=== PATIENT | male | born 1990 | race Caucasian/White ===

== ENCOUNTER 2020-07-14 12:34 | Emergency (ER) | payer BC ==
[2020-07-14 12:45] VITALS: O2SAT 97
[2020-07-14] MEDS ORDERED: Sodium Chloride 0.9% 1000 ML 1,000 ML IV STA (12:52)
[2020-07-14] MEDS ORDERED: BENADRYL 50 MG/ML IV ONE (12:52)
[2020-07-14] MEDS ORDERED: Pepcid 20 MG VIAL IV ONE ×2 (12:52→13:06)
[2020-07-14] MEDS ORDERED: BENADRYL 50 MG/ML ONE (13:06)
[2020-07-14] MEDS ORDERED: Sodium Chloride 0.9% 1000 ML 1,000 ML ONE (13:06)
--- NOTE | 2020-07-14 13:14 | ERPHSYRPT ---
- History of Present Illness Time Seen by Provider: 07/14/20 12:55 Historian: patient Exam Limitations: no limitations Patient Subjective Stated Complaint: Pt states "I have been vomiting since saturday morning, I have not pooped for a week. I cannot keep anything down." Triage Nursing Assessment: Pt presented alert and oriented X 3, skin pwd Pt a mbulates with an upright shuffling gait, pt in no apparent respiratory distress. pt has generalized malaise. Physician History: Patient has had 3 days of nausea and vomiting with upper abdominal discomfort where he is not able to eat and drink over the last 3 days and feels fatigue. Due to his symptoms, he called EMS to bring him into the emergency department to be further evaluated and treated. EMS gave him 4 mg of Zofran IV and he feels he can take oral intake at this time. Patient has not been evaluated or treated prior to coming into the emergency department. Timing/Duration: day(s) (three) Activities at Onset: none Quality: aching Abdominal Pain Onset Location: RUQ Pain Radiation: no radiation Severity of Pain-Max: moderate Severity of Pain-Current: moderate Modifying Factors: Worsens With: eating Associated Symptoms: fever/chills, fatigue, headache, nausea, vomiting, weakness (Generalized), No back, No chest pain, No diaphoresis, No diarrhea, No heartburn, No loss of appetite, No neck pain, No rash, No shortness of breath, No syncope, No testicular pain Previous symptoms: no prior history, no recent treatment Allergies/Adverse Reactions: No Known Drug Allergies Allergy (Verified 07/14/20 12:46) Home Medications: Quetiapine Fumarate [Seroquel] 200 mg PO HS 05/20/15 [History] Methadone HCl [Dolophine HCl] 5 mg PO 07/14/20 [History] Testosterone Cypionate 100 mg IM WEEKLY 07/14/20 [History] Hx Tetanus, Diphtheria Vaccination/Date Given: Yes Hx Influenza Vaccination/Date Given: No Hx Pneumococcal Vaccination/Date Given: No Immunizations Up to Date: Yes Travel Risk - International Travel Have you traveled outside of the country in past 3 weeks: No - Coronavirus Screening Are you exhibiting any of the following symptoms?: Yes Symptoms: Fever, Vomiting/Diarrhea Close contact with a COVID-19 positive Pt in past 14-21 Days: No - Review of Systems Constitutional: Fever, Chills, Fatigue, Malaise, Weakness Eyes: No Discharge, No Eye Pain, No Eye Redness Ears, Nose, & Throat: No Nose Congestion, No Sinus Drainage, No Throat Pain, No Painful Swallowing Respiratory: No Cough, No Dyspnea Cardiac: No Chest Pain, No Edema, No Syncope Abdominal/Gastrointestinal: Abdominal Pain, Nausea, Vomiting, No Diarrhea, No Hematemesis, No Hematochezia, No Melena Genitourinary Symptoms: No Dysuria, No Hematuria, No Flank Pain Musculoskeletal: No Back Pain, No Neck Pain Skin: No Pruritis, No Rash Neurological: Headache, No Dizziness, No Focal Weakness, No Parasthesia, No Sensory Changes Psychological: No Symptoms, No Alcohol Abuse, No Drug Abuse Endocrine: Polyuria Hematologic/Lymphatic: No Easy Bleeding, No Easy Bruising All Other Systems: Reviewed and Negative - Past Medical History Pertinent Past Medical History: Yes Other Medical History: methadone. seroquel - Past Surgical History Past Surgical History: No - Social History Smoking Status: Current every day smoker How long have you smoked: years Exposure to second hand smoke: Yes Drug Use: marijuana Patient Lives Alone: No - Nursing Vital Signs Nursing Vital Signs: Initial Vital Signs Temperature 98.7 F 07/14/20 12:36 Pulse Rate 76 07/14/20 12:36 Respiratory Rate 20 07/14/20 12:36 Blood Pressure 162/99 07/14/20 12:36 O2 Sat by Pulse Oximetry 97 07/14/20 12:36 Pain Scale Pain Intensity 4 - Physical Exam General Appearance: no apparent distress, alert Eye Exam: PERRL/EOMI, eyes nml inspection, No scleral icterus, No pale conjunctivae Ears, Nose, Throat Exam: normal ENT inspection, TMs normal, pharynx normal, moist mucous membranes Neck Exam: normal inspection, non-tender, supple, full range of motion, No meningismus, No Brudzinski, No JVD, No limited range of motion Respiratory Exam: normal breath sounds, lungs clear, airway intact, No respiratory distress, No diminished breath sounds, No accessory muscle use, No crackles/rales, No rhonchi, No wheezing, No stridor Cardiovascular Exam: regular rate/rhythm, normal heart sounds, normal peripheral pulses Gastrointestinal/Abdomen Exam: soft, normal bowel sounds, No tenderness, No distention, No mass, No guarding, No rebound Back Exam: normal inspection, normal range of motion, No CVA tenderness, No vertebral tenderness Extremity Exam: normal inspection, normal range of motion, pelvis stable Neurologic Exam: alert, oriented x 3, cooperative, 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, normal mood/affect, sensation nml, No motor deficits Skin Exam: normal color, warm, dry, No rash, No petechiae, No jaundice SpO2 Interpretation: normal SpO2: 97 O2 Delivery: Room Air - Course Nursing assessment & vital signs reviewed: Yes EKG Interpreted by Me: RATE, Sinus Rhythm, NORMAL AXIS, NORMAL INTERVALS, NORMAL QRS, NORMAL ST-T, Other (Normal sinus rhythm at 61 bpm with normal axis, with normal [place] and QTC intervals, and no acute ST or T wave changes; no appreciable change in comparison EKG from 05/20/2015) - Radiology Exams Chest X-ray Interpretation: Interpreted by me, Reviewed by me, No Fracture, No Pneumonia, No Pneumothorax, No Infiltrates, Nml Mediastinum, Other (Per radiologist interpretation, portable chest demonstrates normal heart, lungs and bony thorax) - Radiology Ultrasound Exam Gallbladder Ultrasound: negative, Other (Per radiologist interpretation, negative gallbladder ultrasound) Ordered Tests: Active Orders 24 hr Category Date Time Status EKG-ER Only STAT Care 07/14/20 12:52 Active NPO (ED) STAT Care 07/14/20 12:52 Active CHEST 1 VIEW (PORTABLE) Stat Exams 07/14/20 12:52 Completed GALLBLADDER [US] Stat Exams 07/14/20 12:53 Completed AMYLASE Stat Lab 07/14/20 13:20 Completed CBC W DIFF Stat Lab 07/14/20 13:20 Completed CMP Stat Lab 07/14/20 13:20 Completed LIPASE Stat Lab 07/14/20 13:20 Completed Lactic Acid Stat Lab 07/14/20 13:24 Completed MAGNESIUM Stat Lab 07/14/20 13:20 Completed PROTIME WITH INR Stat Lab 07/14/20 13:20 Completed TROPONIN Q3H Lab 07/14/20 13:20 Completed TROPONIN Q3H Lab 07/14/20 16:00 Ordered TROPONIN Q3H Lab 07/14/20 19:00 Ordered TROPONIN Q3H Lab 07/14/20 22:00 Ordered TROPONIN Q3H Lab 07/15/20 01:00 Ordered UA W/RFX UR CULTURE Stat Lab 07/14/20 14:22 Completed Medication Summary Discontinued Medications Generic Name Dose Route Start Last Admin Trade Name Yann PRN Reason Stop Dose Admin Diphenhydramine HCl 25 mg 07/14/20 12:52 07/14/20 13:08 Benadryl 50 Mg/Ml IV 07/14/20 12:53 25 mg STAT ONE Administration Diphenhydramine HCl Confirm 07/14/20 13:06 Benadryl 50 Mg/Ml Administered 07/14/20 13:07 Dose 50 mg .ROUTE .STK-MED ONE Famotidine 20 mg 07/14/20 12:52 07/14/20 13:07 Pepcid 20 Mg Vial IV 07/14/20 12:53 20 mg STAT ONE Administration Famotidine Confirm 07/14/20 13:06 Pepcid 20 Mg Vial Administered 07/14/20 13:07 Dose 20 mg IV .STK-MED ONE Sodium Chloride 1,000 mls @ 999 mls/hr 07/14/20 12:52 07/14/20 14:35 Sodium Chloride 0.9% 1000 Ml IV 07/14/20 13:52 Infused .Q1H1M STA Infusion Sodium Chloride Confirm 07/14/20 13:06 Sodium Chloride 0.9% 1000 Ml Administered 07/14/20 13:07 Dose 1,000 mls @ ud .ROUTE .STK-MED ONE Ketorolac Tromethamine 30 mg 07/14/20 14:23 07/14/20 14:27 Toradol 30 Mg Injection IV 07/14/20 14:24 30 mg STAT ONE Administration Ketorolac Tromethamine Confirm 07/14/20 14:26 Toradol 30 Mg Injection Administered 07/14/20 14:27 Dose 30 mg .ROUTE .STK-MED ONE Lab/Rad Data: Laboratory Result Diagrams 07/14/20 13:20 07/14/20 13:20 Laboratory Results 07/14/20 07/14/20 07/14/20 Range/Units 14:22 13:24 13:20 WBC (4.0-10.5) K/mm3 RBC (4.1-5.6) M/mm3 Hgb (12.5-18.0) gm/dl Hct (42-50) % MCV (78-100) fl MCH (26-32) pg MCHC (32-36) g/dl RDW (11.5-14.0) % Plt Count (150-450) K/mm3 MPV (7.5-11.0) fl Gran % (36.0-66.0) % Eos # (Auto) (0-0.5) Absolute Lymphs (auto) (1.0-4.6) Absolute Monos (auto) (0.0-1.3) Lymphocytes % (24.0-44.0) % Monocytes % (0.0-12.0) % Eosinophils % (0.00-5.0) % Basophils % (0.0-0.4) % Absolute Granulocytes (1.4-6.9) Basophils # (0-0.4) PT (8.83-12.87) SECONDS INR (0.8-3.0) Sodium (137-145) mmol/L Potassium (3.5-5.1) mmol/L Chloride (98-107) mmol/L Carbon Dioxide (22-30) mmol/L Anion Gap (5-15) MEQ/L BUN (9-20) mg/dL Creatinine (0.66-1.25) mg/dL Estimated GFR ML/MIN Glucose (74-106) mg/dL Lactic Acid 1.0 (0.4-2.0) Calcium (8.4-10.2) mg/dL Magnesium (1.6-2.3) mg/dL Total Bilirubin (0.2-1.3) mg/dL AST (17-59) U/L ALT (0-50) U/L Alkaline Phosphatase (38-126) U/L Troponin I < 0.012 (0.000-0.034) ng/mL Serum Total Protein (6.3-8.2) g/dL Albumin (3.5-5.0) g/dL Amylase (30-110) U/L Lipase (23-300) U/L Urine Color ANGEL (YELLOW) Urine Appearance SLIGHTLY CLOUDY (CLEAR) Urine pH 6.0 (5-6) Ur Specific Muir 1.032 (1.005-1.025) Urine Protein 30 (Negative) Urine Ketones MODERATE (NEGATIVE) Urine Blood NEGATIVE (0-5) Andrey/ul Urine Nitrite NEGATIVE (NEGATIVE) Urine Bilirubin NEGATIVE (NEGATIVE) Urine Urobilinogen 4 (0-1) mg/dL Ur Leukocyte Esterase SMALL (NEGATIVE) Urine WBC (Auto) 0-2 (0-5) /HPF Urine RBC (Auto) NONE (0-2) /HPF U Epithel Cells (Auto) NONE (FEW) /HPF Urine Bacteria (Auto) NONE (NEGATIVE) /HPF Urine Mucus (Auto) SLIGHT (NEGATIVE) /HPF Urine Culture Reflexed NO (NO) Urine Glucose NEGATIVE (NEGATIVE) mg/dL 07/14/20 07/14/20 07/14/20 Range/Units 13:20 13:20 13:20 WBC 11.5 H (4.0-10.5) K/mm3 RBC 5.64 H (4.1-5.6) M/mm3 Hgb 17.0 (12.5-18.0) gm/dl Hct 49.3 (42-50) % MCV 87.4 (78-100) fl MCH 30.1 (26-32) pg MCHC 34.5 (32-36) g/dl RDW 13.4 (11.5-14.0) % Plt Count 275 (150-450) K/mm3 MPV 10.0 (7.5-11.0) fl Gran % 73.8 H (36.0-66.0) % Eos # (Auto) 0.01 (0-0.5) Absolute Lymphs (auto) 2.25 (1.0-4.6) Absolute Monos (auto) 0.71 (0.0-1.3) Lymphocytes % 19.6 L (24.0-44.0) % Monocytes % 6.2 (0.0-12.0) % Eosinophils % 0.1 (0.00-5.0) % Basophils % 0.3 (0.0-0.4) % Absolute Granulocytes 8.47 H (1.4-6.9) Basophils # 0.03 (0-0.4) PT 13.6 H (8.83-12.87) SECONDS INR 1.20 (0.8-3.0) Sodium 136 L (137-145) mmol/L Potassium 4.0 (3.5-5.1) mmol/L Chloride 104 (98-107) mmol/L Carbon Dioxide 22 (22-30) mmol/L Anion Gap 13.2 (5-15) MEQ/L BUN 14 (9-20) mg/dL Creatinine 0.93 (0.66-1.25) mg/dL Estimated GFR > 60.0 ML/MIN Glucose 105 (74-106) mg/dL Lactic Acid (0.4-2.0) Calcium 9.5 (8.4-10.2) mg/dL Magnesium 2.3 (1.6-2.3) mg/dL Total Bilirubin 1.20 (0.2-1.3) mg/dL AST 51 (17-59) U/L ALT 73 H (0-50) U/L Alkaline Phosphatase 68 (38-126) U/L Troponin I (0.000-0.034) ng/mL Serum Total Protein 8.3 H (6.3-8.2) g/dL Albumin 4.8 (3.5-5.0) g/dL Amylase 77 (30-110) U/L Lipase 41 (23-300) U/L Urine Color (YELLOW) Urine Appearance (CLEAR) Urine pH (5-6) Ur Specific Muir (1.005-1.025) Urine Protein (Negative) Urine Ketones (NEGATIVE) Urine Blood (0-5) Andrey/ul Urine Nitrite (NEGATIVE) Urine Bilirubin (NEGATIVE) Urine Urobilinogen (0-1) mg/dL Ur Leukocyte Esterase (NEGATIVE) Urine WBC (Auto) (0-5) /HPF Urine RBC (Auto) (0-2) /HPF U Epithel Cells (Auto) (FEW) /HPF Urine Bacteria (Auto) (NEGATIVE) /HPF Urine Mucus (Auto) (NEGATIVE) /HPF Urine Culture Reflexed (NO) Urine Glucose (NEGATIVE) mg/dL - Progress Progress: improved Progress Note: 07/14/20 14:24 Patient is having a headache and with normal renal function, patient will be given Toradol 30 mg IV x1 07/14/20 14:45 Patient feels much better after IV hydration and his headache is almost completely resolved after IV hydration and IV Toradol 07/14/20 14:52 Patient came into the emergency department with nausea and vomiting for the past 3 days which led to right upper quadrant abdominal pain and fatigue. Patient had a normal EKG with normal QTc interval, normal lab work that showed possible direction towards dehydration compared to past labs, and negative upper quadrant ultrasound for any abnormalities. Patient had improved symptoms IV hydration and IV medications for nausea, antiacid and pain relief. Patient be sent home with a short course of Phenergan even though he is on methadone as he had normal QTC and has no cardiac history to help with symptom relief. Patient did have a COVID-19 test performed other clinically he appears to be lower probability, and may return back to work in 4 days if he has a negative test and his symptoms improved. Patient does not require any further testing or treatment in the emergency department and does not require inpatient admission for further evaluation monitoring as he was hemodynamically in good condition, afebrile, had a normal SPO2 without any oxygen support throughout his time in the emergency department and did not appear to be at any time in any type of respiratory distress. Reviewed with patient in detail what signs and symptoms to return back to the emergency department, otherwise to follow-up with his primary care provider in 4 days if no improvement Counseled pt/family regarding: lab results, diagnosis, need for follow-up, rad results - Departure Departure Disposition: Home Clinical Impression: Mild dehydration, Nausea and vomiting in adult, RUQ abdominal pain, Elevated ALT measurement, Elevated blood pressure reading without diagnosis of hypertension Condition: Good Critical Care Time: No Referrals: CESIA FRANKLIN NP [Primary Care Provider] - Follow Up with PCP/3 days (If symptoms have not improved and to follow-up your COVID-19 testing) Instructions: DASH Diet, Dehydration, Adult (DC), Nausea and Vomiting, Adult (DC), Headache, Adult (DC) Additional Instructions: Return immediately back to the emergency department for any fever, new shortness of breath, new cough, new chest pain new abdominal pain, worsening vomiting, new diarrhea, new back pain, new skin rash, new overwhelming fatigue or any other concerning signs or symptoms that were not present at today's emergency room visit for immediate reevaluation in the emergency department Forms: Work/School Release Form Prescriptions: Promethazine HCl 25 mg [Phenergan 25 mg] 25 mg PO Q6H PRN PRN #12 tablet PRN Reason: Nausea
[2020-07-14 13:26] LABS: Absolute Neutrophil Ct (ANC) 8.47 (1.4-6.9); BASOPHIL % 0.3 % (0.0-0.4); Basophil (Absolute #) 0.03 (0-0.4); Eosinophil % 0.1 % (0.00-5.0); Eosinophil (Absolute #) 0.01 (0-0.5); Hematocrit 49.3 % (42-50); Lymphocyte (Absolute #) 2.25 (1.0-4.6); Lymphocytes % 19.6 % (24.0-44.0); Mean Cell Volume 87.4 fl (78-100); Mean Corpuscular Hemoglobin 30.1 pg (26-32); Mean Corpuscular Hgb Concent. 34.5 g/dl (32-36); Monocyte (Absolute #) 0.71 (0.0-1.3); Monocytes % 6.2 % (0.0-12.0); Neutrophil % 73.8 % (36.0-66.0); Platelet Count 275 K/mm3 (150-450); Red Blood Count 5.64 M/mm3 (4.1-5.6); Red Cell Distribution Width 13.4 % (11.5-14.0); White Blood Count 11.5 K/mm3 (4.0-10.5)
--- NOTE | 2020-07-14 13:26 | XRAY ---
Indication: Short of breath, nausea, vomiting, and headache. Comparison: None Portable chest demonstrates normal heart, lungs, and bony thorax.
[2020-07-14 13:42] LABS: INR 1.2 (0.8-3.0); PROTIME 13.6 SECONDS (8.83-12.87)
[2020-07-14 13:45] LABS: ALBUMIN 4.8 g/dL (3.5-5.0); ALKALINE PHOSPHATASE 68 U/L (38-126); AMYLASE 77 U/L (30-110); ANION GAP 13.2 MEQ/L (5-15); BLOOD UREA NITROGEN 14 mg/dL (9-20); CHLORIDE 104 mmol/L (98-107); Calcium 9.5 mg/dL (8.4-10.2); Carbon Dioxide 22 mmol/L (22-30); Creatinine 1 0.93 mg/dL (0.66-1.25); EST GLOMERULAR FILTRATION RATE > 60.0 ML/MIN; Glucose 105 mg/dL (74-106); LIPASE 41 U/L (23-300); MAGNESIUM 2.3 mg/dL (1.6-2.3); SGOT/AST 51 U/L (17-59); SGPT/ALT 73 U/L (0-50); SODIUM 136 mmol/L (137-145); Total Protein 8.3 g/dL (6.3-8.2)
[2020-07-14 14:06] VITALS: BP 132/88; PULSE 70
--- NOTE | 2020-07-14 14:14 | XRAY ---
Indication: Right upper quadrant pain. Nausea and vomiting. Two-dimensional gallbladder sonogram performed. Comparison: None Gallbladder normally distended without gallstones, wall thickening, or pericholecystic fluid. Common bile duct measures 3.4 mm. Remaining visualized liver, pancreas, and right kidney sonographically unremarkable. Right kidney measures 11.1 cm in length. No ascites. Impression: Negative gallbladder sonogram.
[2020-07-14] MEDS ORDERED: TORAdol 30 mg Injection IV ONE (14:23)
[2020-07-14] MEDS ORDERED: TORAdol 30 mg Injection ONE (14:26)
[2020-07-14 14:40] LABS: Appearance SLIGHTLY CLOUDY (CLEAR); Bilirubin NEGATIVE (NEGATIVE); Blood NEGATIVE Ery/ul (0-5); Glucose NEGATIVE (NEGATIVE); Ketones MODERATE (NEGATIVE); Leukocyte Esterase SMALL (NEGATIVE); Mucus SLIGHT /HPF (NEGATIVE); Nitrite NEGATIVE (NEGATIVE); Protein,Urine Dip 30 (Negative); Specific Gravity 1.032 (1.005-1.025); Urobilinogen 4 mg/dL (0-1); WBC 0-2 /HPF (0-5)
== END 2020-07-14 15:25 | disposition home or self-care (01) ==
LOC: ED 12:34
DX: E86.0 Dehydration (principal); R11.2 Nausea with vomiting, unspecified; R10.11 Right upper quadrant pain; R74.01 Elevation of levels of liver transaminase levels; R03.0 Elevated blood-pressure reading, without diagnosis of hypertension; R50.9 Fever, unspecified; R19.7 Diarrhea, unspecified; Z79.899 Other long term (current) drug therapy; Z79.891 Long term (current) use of opiate analgesic
CPT/HCPCS: 36415; 71045; 76705; 80053; 81001; 82150; 83605; 83690; 83735; 84484; 85025; 85610; 93005; 96360; 96374; 96375; 99284; U0003; J1200; J1885

== ENCOUNTER 2023-10-24 13:39 | Emergency (ER) | payer OTHER ==
[2023-10-24 14:07] VITALS: PULSE 110; RESP 19; TEMP 98
--- NOTE | 2023-10-24 14:07 | ERPHSYRPT ---
- History of Present Illness Time Seen by Provider: 10/24/23 14:07 Source: patient Exam Limitations: no limitations Physician History: This is a 33-year-old white male patient who presents to the emergency department with concerns over him getting cat saliva in his left eye yesterday evening. He is concerned that the cat might be rabid. Animal control was called but they were unable to secure the animal. Patient wants to start rabies vaccinations. Timing/Duration: yesterday Severity: mild Modifying Factors: Improves With: nothing Associated Symptoms: denies symptoms Allergies/Adverse Reactions: No Known Drug Allergies Allergy (Verified 10/24/23 13:55) Home Medications: Quetiapine Fumarate [Seroquel] 200 mg PO HS 05/20/15 [History] Methadone HCl [Dolophine HCl] 5 mg PO BID 07/14/20 [History] Testosterone Cypionate 100 mg IM WEEKLY 07/14/20 [History] Amoxicillin 1 tab PO QID 10/24/23 [History] Hx Tetanus, Diphtheria Vaccination/Date Given: Yes Hx Influenza Vaccination/Date Given: No Hx Pneumococcal Vaccination/Date Given: No Travel Risk - International Travel Have you traveled outside of the country in past 3 weeks: No - Coronavirus Screening Are you exhibiting any of the following symptoms?: No Close contact with a COVID-19 positive Pt in past 14-21 Days: No - Review of Systems Constitutional: No Symptoms Eyes: No Symptoms Ears, Nose, & Throat: No Symptoms Respiratory: No Symptoms Cardiac: No Symptoms Abdominal/Gastrointestinal: No Symptoms Genitourinary Symptoms: No Symptoms Musculoskeletal: No Symptoms Skin: No Symptoms Neurological: No Symptoms Psychological: No Symptoms Endocrine: No Symptoms Hematologic/Lymphatic: No Symptoms Immunological/Allergic: No Symptoms All Other Systems: Reviewed and Negative - Past Medical History Pertinent Past Medical History: Yes Other Medical History: methadone. seroquel - Past Surgical History Past Surgical History: No - Social History Smoking Status: Current every day smoker How long have you smoked: years Exposure to second hand smoke: Yes Drug Use: marijuana Patient Lives Alone: No - Nursing Vital Signs Nursing Vital Signs: Initial Vital Signs Temperature 98 F 10/24/23 13:57 Pulse Rate 110 H 10/24/23 13:57 Respiratory Rate 19 10/24/23 13:57 Blood Pressure 155/83 10/24/23 13:57 O2 Sat by Pulse Oximetry 97 10/24/23 13:57 Pain Scale Pain Intensity 0 - Physical Exam General Appearance: no apparent distress, alert, anxiety Eye Exam: PERRL/EOMI, post op pupil defect (L) Ears, Nose, Throat Exam: normal ENT inspection, moist mucous membranes Neck Exam: normal inspection, non-tender, supple, full range of motion Respiratory Exam: airway intact, No chest tenderness, No respiratory distress Gastrointestinal/Abdomen Exam: No tenderness Rectal Exam: not done Back Exam: normal inspection, normal range of motion, No CVA tenderness, No vertebral tenderness Extremity Exam: normal inspection, normal range of motion, pelvis stable Neurologic Exam: alert, oriented x 3, cooperative, 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 The level of complexity in the workup performed is based on review the patient's past medical history, review the patient's medication list, review the patient's drug allergy list, history of present illness and physical findings on examination. This patient's workup does not require laboratory radiographic studies. Stephanie Valladares the nurse here in the emergency room department, at my direction called the [facility]. Statistics provided us with fact that there has been no cat to human transmission of rabies in 40 years. She then called rabies specialist in [place] and they do not recommend rabies vaccine in this scenario where there cat saliva in the patient's left eye. There were no scratches or bites. They recommended waiting for animal control and then performing appropriate studies on the animal if it is captured. I discussed this in detail with the patient. I wanted to reassure him that there is a very low likelihood that he would have contracted rabies. I told him, based on the information above, I would not be providing this patient with rabies vaccinations. I did recommend that he obtain a second opinion if he desires to do so. Counseled pt/family regarding: diagnosis, need for follow-up Medical Desision Making - Diagnostic Testing Diagnostic test were ordered, analyzed, and reviewed by me: No - Departure Departure Disposition: Home Clinical Impression: Encounter for medical screening examination Condition: Stable Critical Care Time: No Referrals: KENDRA VALLADARES MD [Primary Care Provider] - Follow up/PCP as directed Additional Instructions: Follow-up with primary care provider tomorrow, 10/25/2023 for obtaining follow-up appointment for further evaluation management.
[2023-10-24 15:08] VITALS: BP 119/85; O2SAT 100
== END 2023-10-24 15:40 | disposition home or self-care (01) ==
LOC: ED 13:39
DX: Z71.1 Person with feared health complaint in whom no diagnosis is made (principal); Z79.891 Long term (current) use of opiate analgesic; Z79.899 Other long term (current) drug therapy; Z72.0 Tobacco use
CPT/HCPCS: 99281